=== PATIENT | female | born 1990 | race Caucasian/White ===

== ENCOUNTER → 2016-12-05 | Outpatient (CLI) | payer OTHER ==
[~2016-12-05] MED LIST: BSP15 PO; CLR10 PO; DSY/150 PO; GDN80 PO; GLC500 PO; NORE1TAB50 PO; OMEG10007 PO; OMEP20CA9 PO; WLLSR150 PO
[2016-12-05 17:54] LABS: MEAN CELL VOLUME 94.9 fL (80-100); MEAN CORPUSCULAR HEMOGLOBIN 32.6 pg (25-34); MEAN CORPUSCULAR HGB CONC 34.4 g/dl (32-36); MEAN PLATELET VOLUME 9.5 fL (7.4-10.4); PLATELET COUNT 376 K/uL (130-400); RED BLOOD COUNT 4.32 M/uL (4.2-5.4); WHITE BLOOD COUNT 9.87 K/uL (4.8-10.8)
[2016-12-05 18:00] LABS: ALT/SGPT 33 U/L (12-78); AST/SGOT 59 U/L (15-37); BLOOD UREA NITROGEN 5 mg/dl (7-18); BUN/CREATININE RATIO 6.5 (10-20); CALCIUM 8.9 mg/dl (8.5-10.1); CARBON DIOXIDE 29 mmol/L (21-32); CHLORIDE 104 mmol/L (98-107); CHOLESTEROL 213 mg/dl (0-200); CREATININE 0.81 mg/dl (0.60-1.20); GLUCOSE 113 mg/dl (70-99); POTASSIUM 4.2 mmol/L (3.5-5.1); SODIUM 140 mmol/L (136-145); TRIGLYCERIDES 121 mg/dl (0-150); VERY LOW DENSITY LIPOPROT CALC 24 mg/dl
[2016-12-05 18:10] LABS: ALB/GLOB RATIO 0.9 (0.9-2); ALKALINE PHOSPHATASE 87 U/L (45-117); HDL CHOLESTEROL 43 mg/dl; LDL CHOLESTEROL CALCULATED 146 mg/dl; THYROID STIMULATING HORMONE 0.962 uIu/ml (0.300-4.500)
[2016-12-06 07:44] LABS: ESTIMATED AVERAGE GLUCOSE 114 mg/dl; HA1C FLAG Normal (Normal)
--- NOTE | 2016-12-11 11:19 | CODING QUERY MEDICAL NECESSITY ---
CQSUPPORTING DIAGNOSIS NEEDED A supporting diagnosis is required for the test/procedure performed on this patient in order for us to be reimbursed by the patient's insurance. Please provide a supporting diagnosis for the following test/procedure listed below next to the test name along with your signature. *If there is no additional diagnosis for this patient that would support the following test/procedure please document that below next to the test/procedure. Test(s)/Procedure(s) that require a supporting diagnosis: BENEDICT 12/05/16 GLYCATED HEMOGLOBIN TEST Provider Signature: Date: Thank you Doris [facility] Once completed, please kindly fax back to [phone] For questions please call [phone]
== END | disposition home or self-care (01) ==
LOC: C.LABBFT 10:26
PROVIDERS: ATTEND Internal Medicine
DX: I10 Essential (primary) hypertension (principal); E88.81 Metabolic syndrome and other insulin resistance; E66.01 Morbid (severe) obesity due to excess calories

== ENCOUNTER → 2017-12-10 | Outpatient (CLI) | payer OTHER ==
[2017-12-10 17:16] LABS: BASO % 0.3 %; BASO ABS # 0.03 K/uL (0-0.2); EOS % 2.7 %; EOS ABS # 0.32 K/uL (0-0.5); HEMATOCRIT 41.4 % (37-47); IG# 0.03 K/uL (0.00-0.02); LYMPH % 32.4 %; LYMPH ABS # 3.78 K/uL (1.2-3.4); MEAN CELL VOLUME 96.7 fL (80-100); MEAN CORPUSCULAR HEMOGLOBIN 32.7 pg (25-34); MEAN CORPUSCULAR HGB CONC 33.8 g/dl (32-36); MEAN PLATELET VOLUME 9.6 fL (7.4-10.4); MONO % 8.1 %; MONO ABS # 0.94 K/uL (0.11-0.59); NEUT % 56.2 %; NEUT ABS # 6.57 K/uL (1.4-6.5); PLATELET COUNT 382 K/uL (130-400); WHITE BLOOD COUNT 11.67 K/uL (4.8-10.8)
[2017-12-10 17:39] LABS: ALBUMIN 3.5 gm/dl (3.4-5.0); ALKALINE PHOSPHATASE 80 U/L (45-117); ALT/SGPT 32 U/L (12-78); AST/SGOT 56 U/L (15-37); BLOOD UREA NITROGEN 10 mg/dl (7-18); CALCIUM 8.9 mg/dl (8.5-10.1); CARBON DIOXIDE 28 mmol/L (21-32); CHOLESTEROL 202 mg/dl (0-200); CREATININE 0.91 mg/dl (0.60-1.20); GLUCOSE 117 mg/dl (70-99); LDL CHOLESTEROL CALCULATED 139 mg/dl; POTASSIUM 4.2 mmol/L (3.5-5.1); SODIUM 136 mmol/L (136-145); TOTAL PROTEIN 8.1 gm/dl (6.4-8.2)
[2017-12-11 06:01] LABS: HEMOGLOBIN A1C 6.1 % (4.5-5.6)
== END | disposition home or self-care (01) ==
LOC: C.LABBFT 12:20
PROVIDERS: ATTEND Internal Medicine
DX: E78.5 Hyperlipidemia, unspecified (principal); R73.01 Impaired fasting glucose; I10 Essential (primary) hypertension